=== PATIENT | female | born 1975 | race Native Hawaiian/Other Pacific Islander ===

== ENCOUNTER 2023-01-24 06:01 | Observation (INO) | payer MEDICAID, OTHER ==
[~2023-01-24] VITALS: Ht 157.5 cm; Wt 64.9 kg
[2023-01-24] VITALS (9 sets, daily range): BP systolic 97–120; BP diastolic 49–68
[~2023-01-24 06:01] MED LIST: APAP325T4 PO; ATOR40TA75 PO; CETI-24 PO; DIAZ5TAB PO; DICL1GEL3 TOP; DRON2.5C11 PO; FEOS200T2 PO; LIDO5DIS41 TD; LYRI75CA PO; OMEP40CA4 PO; TRAZ-252 PO; VITA200048 PO; VITA500C24 PO; VITMTA PO; ZOLO100T PO; ceFAZolin SOD 2 GM in IV 1 EA IV ONE
[2023-01-24 06:37] LABS: HEMATOCRIT 39.5 % (36.0-47.0); HEMOGLOBIN 12.1 g/dl (12.0-15.5); MEAN CORPUSCULAR HEMOGLOBIN 27.1 pg (27.0-33.0); MEAN CORPUSCULAR HGB CONC 30.6 g/dl (32.0-36.5); MEAN CORPUSCULAR VOLUME 88.6 fl (80.0-96.0); PLATELET COUNT, AUTOMATED 249 10^3/uL (150-450); RED BLOOD COUNT 4.46 10^6/uL (4.00-5.40); WHITE BLOOD COUNT 4.9 10^3/uL (4.0-10.0)
[2023-01-24] MEDS ORDERED: BUPIVACAINE HCL 0.25% 30ML VIAL As Ordered ONE (07:13)
[2023-01-24] MEDS ORDERED: LR 1,000 ML IV SCH ×2 (07:20→10:30)
[2023-01-24] MEDS ORDERED: SUGAMMADEX SODIUM 500 MG/5 ML VIAL (BRIDION) As Ordered ONE (08:37)
[2023-01-24] MEDS ORDERED: fentaNYL 100 MCG/2 ML INJECTION As Ordered ONE (08:37)
[2023-01-24] MEDS ORDERED: LIDOCAINE 2% 100MG/5ML SDV (FOR ANES.) As Ordered ONE (08:37)
[2023-01-24] MEDS ORDERED: KETOROLAC 60MG 2ML VIAL As Ordered ONE (08:37)
[2023-01-24] MEDS ORDERED: propofoL 200 MG/20 ML VIAL As Ordered ONE ×2 (08:37→10:20)
[2023-01-24] MEDS ORDERED: HYDROmorphone HCL 2MG/ML 1ML VIAL As Ordered ONE (08:37)
[2023-01-24] MEDS ORDERED: ONDANSETRON 4MG 2ML VIAL As Ordered ONE (08:37)
[2023-01-24] MEDS ORDERED: ACETAMINOPHEN 1000MG 100ML IV BAG As Ordered ONE (08:37)
[2023-01-24] MEDS ORDERED: MIDAZOLAM INJ 2MG/2ML VIAL As Ordered ONE (08:37)
[2023-01-24] MEDS ORDERED: GLYCOPYRROLATE INJ 0.2 MG/ML 2 ML VIAL As Ordered ONE (08:37)
[2023-01-24] MEDS ORDERED: ROCURONIUM BROMIDE 50MG/5ML VIAL As Ordered ONE (08:37)
[2023-01-24] MEDS ORDERED: PHENYLephrine 500MCG 5ML (100MCG/ML) SYRINGE As Ordered ONE ×2 (08:58→09:37)
[2023-01-24] MEDS ORDERED: ONDANSETRON 4MG 2ML VIAL IV PRN ×2 (10:30→11:00)
[2023-01-24] MEDS ORDERED: HYDROMORPHONE HCL 0.5 MG/ 0.5 ML SYRINGE IV PRN (10:30)
[2023-01-24] MEDS ORDERED: fentaNYL 100 MCG/2 ML INJECTION IV PRN (10:30)
[2023-01-24] MEDS ORDERED: oxyCODONE 5MG TAB PO PRN ×2 (10:30→11:00)
[2023-01-24] MEDS ORDERED: PROMETHAZINE 25MG/ML 1ML VIAL IV PRN (11:00)
[2023-01-24] MEDS ORDERED: MORPHINE 2 MG/ML 1ML VIAL IV PRN (11:00)
[2023-01-24] MEDS: ACETAMINOPHEN 1000MG 100ML IV BAG IV SCH ×2 (16:40→20:35)
[2023-01-24] MEDS: KETOROLAC 30 MG/ML 1ML VIAL IV SCH ×2 (16:40→21:10)
[2023-01-24] MEDS ORDERED: LYRI75CA PO (16:45)
[2023-01-24] MEDS ORDERED: FLON1SPR (16:45)
[2023-01-24] MEDS: LR 1,000 ML IV SCH ×2 (16:46→20:34)
[2023-01-24] MEDS ORDERED: HOME MED LIST COMPLETE! XX SCH (16:50)
[2023-01-24] MEDS ORDERED: DOCUSATE SODIUM 100MG CAPSULE PO SCH (21:00)
[2023-01-24] MEDS ORDERED: FAMOTIDINE 20 MG TAB PO SCH (21:00)
[2023-01-24] MEDS: oxyCODONE 5MG TAB PO PRN (21:10)
[2023-01-25] MEDS: ACETAMINOPHEN 1000MG 100ML IV BAG IV SCH ×2 (03:07→07:27)
[2023-01-25] MEDS: KETOROLAC 30 MG/ML 1ML VIAL IV SCH (03:07)
[2023-01-25] MEDS: LR 1,000 ML IV SCH ×2 (03:08→07:28)
[2023-01-25] MEDS: oxyCODONE 5MG TAB PO PRN (03:41)
[2023-01-25 04:00] VITALS: BP 121/57
[2023-01-25 06:48] LABS: BASO % 0.7 % (0.0-1.0); EOS % 0.3 % (0.0-3.0); HEMATOCRIT 31.2 % (36.0-47.0); LYMPH # 1.5 10^3/uL (1.5-5.0); LYMPH % 24.4 % (24.0-44.0); MEAN CORPUSCULAR HEMOGLOBIN 27.4 pg (27.0-33.0); MEAN CORPUSCULAR HGB CONC 30.8 g/dl (32.0-36.5); MEAN CORPUSCULAR VOLUME 89.1 fl (80.0-96.0); MONO # 0.3 10^3/uL (0.0-0.8); MONO % 5.5 % (2.0-8.0); NEUTROPHILS # 4.2 10^3/uL (1.5-8.5); NEUTROPHILS % 68.9 % (36.0-66.0); PLATELET COUNT, AUTOMATED 192 10^3/uL (150-450)
[2023-01-25 07:04] LABS: HEMOGLOBIN 9.6 g/dl (12.0-15.5)
[2023-01-25 07:34] VITALS: BP 129/59
== END 2023-01-25 09:51 | disposition home or self-care (01) ==
LOC: M SDC 06:01 → M PED 06:02
PROVIDERS: ADMIT Obstetrics & Gynecology; ATTEND Obstetrics & Gynecology
DX: N80.03 Adenomyosis of the uterus (principal); D25.9 Leiomyoma of uterus, unspecified; D64.9 Anemia, unspecified; F41.9 Anxiety disorder, unspecified; F32.A Depression, unspecified; Z79.899 Other long term (current) drug therapy; Z87.891 Personal history of nicotine dependence
CPT/HCPCS: 36415; 58573; 85025; 85027; 86850; 86900; 86901; 87635; 88307; 96361; 96374; 96375; 96376; J0131; J0690; J1100; J1170; J1885; J2250; J2370; J2405; J3010; S0020

== ENCOUNTER → 2023-04-12 | Outpatient (CLI) | payer MEDICAID, OTHER ==
[~2023-04-12] MED LIST changes: +DICL100G10 TOP; -DICL1GEL3 TOP; +FLON1SPR; -ceFAZolin SOD 2 GM in IV 1 EA IV ONE
== END ==
LOC: M PLARAD 12:51
PROVIDERS: ATTEND Family Medicine
DX: M54.6 Pain in thoracic spine (principal)

== ENCOUNTER → 2023-05-18 | Outpatient (CLI) | payer MEDICAID ==
[2023-05-18 09:44] LABS: BASO # 0.1 10^3/uL (0.0-0.2); BASO % 1.1 % (0.0-1.0); EOS % 0.5 % (0.0-3.0); HEMATOCRIT 42.2 % (36.0-47.0); HEMOGLOBIN 13.6 g/dl (12.0-15.5); LYMPH # 1.5 10^3/uL (1.5-5.0); LYMPH % 26.2 % (24.0-44.0); MEAN CORPUSCULAR HEMOGLOBIN 29.1 pg (27.0-33.0); MEAN CORPUSCULAR HGB CONC 32.2 g/dl (32.0-36.5); MEAN CORPUSCULAR VOLUME 90.4 fl (80.0-96.0); MONO # 0.3 10^3/uL (0.0-0.8); MONO % 4.9 % (2.0-8.0); NEUTROPHILS # 3.8 10^3/uL (1.5-8.5); NEUTROPHILS % 67.1 % (36.0-66.0); PLATELET COUNT, AUTOMATED 240 10^3/uL (150-450); RED BLOOD COUNT 4.67 10^6/uL (4.00-5.40); WHITE BLOOD COUNT 5.7 10^3/uL (4.0-10.0)
[2023-05-18 10:12] LABS: IRON (FE) 55 UG/DL (50-170)
[2023-05-18 10:13] LABS: PERCENT SATURATION 18.8 % (13.2-45.0); TOTAL IRON BINDING CAPACITY 293 UG/DL (250-425)
[2023-05-18 10:19] LABS: ALBUMIN 3.7 G/DL (3.2-5.2); ALKALINE PHOSPHATASE 49 U/L (46-116); ALT/SGPT 11 U/L (7.0-40); AST/SGOT < 8 U/L (<34); BILIRUBIN,DIRECT < 0.1 MG/DL (<0.4); BILIRUBIN,TOTAL 0.3 MG/DL (0.3-1.2); BLOOD UREA NITROGEN 12 MG/DL (9-23); CREATININE FOR GFR 0.55 MG/DL (0.55-1.30); FERRITIN 29.6 NG/ML (7.3-270.7); GLOMERULAR FILTRATION RATE > 60.0 (>58); TOTAL PROTEIN 6.7 G/DL (5.7-8.2)
== END ==
LOC: M LAB 09:10
PROVIDERS: ATTEND Internal Medicine Gastroenterology
DX: R10.13 Epigastric pain (principal)

== ENCOUNTER → 2023-06-24 | Outpatient (CLI) | payer MEDICAID ==
[~2023-06-24] MED LIST changes: +GASTROGRAFIN SOLUTION 30ML ONE; +ISOVUE-370 76% 100ML VIAL ONE
== END ==
LOC: M PLAIMG 09:29
PROVIDERS: ATTEND Internal Medicine Gastroenterology
DX: R10.13 Epigastric pain (principal)

== ENCOUNTER → 2023-12-12 | Outpatient (CLI) | payer MEDICAID, OTHER ==
[~2023-12-12] MED LIST changes: -GASTROGRAFIN SOLUTION 30ML ONE; -ISOVUE-370 76% 100ML VIAL ONE; +PROHANCE 279.3MG/ML 15ML VIAL ONE
== END ==
LOC: M PLAIMG 10:11
PROVIDERS: ATTEND Orthopaedic Surgery
DX: M54.50 Low back pain, unspecified (principal)
CPT/HCPCS: 72158; A9576

== ENCOUNTER → 2024-01-03 | Outpatient (CLI) | payer OTHER ==
[~2024-01-03] MED LIST changes: -PROHANCE 279.3MG/ML 15ML VIAL ONE
== END ==
LOC: M PLARAD 08:52
PROVIDERS: ATTEND Family Medicine
DX: M54.6 Pain in thoracic spine (principal)